=== PATIENT | male | born 1965 | race Caucasian/White ===

== ENCOUNTER 2024-03-01 11:00 | Emergency (ER) | payer SELFPAY ==
[~2024-03-01] VITALS: Ht 180.3 cm; Wt 102.6 kg
[~2024-03-01 11:00] MED LIST: GLU500
[2024-03-01 11:02] VITALS: BP 148/86; PULSE 87; RESP 19; TEMP 97.7; O2SAT 95
[2024-03-01] MEDS: HYDROcodone/APAP 5/325 MG 1 TAB TAB PO ONE ×2 (11:25→12:26)
[2024-03-01] MEDS: LIDOCAINE MPF 1% 10 MG/ML VIAL INJ ONE (12:58)
[2024-03-01] MEDS ORDERED: NAPR-1704 PO (12:58)
[2024-03-01] MEDS ORDERED: ACET-8905 PO (12:58)
[2024-03-01] MEDS ORDERED: CEPH-588 PO (12:58)
[2024-03-01 13:15] VITALS: BP 148/86; PULSE 87; RESP 19; TEMP 97.7; O2SAT 95
== END 2024-03-01 13:15 | disposition home or self-care (01) ==
LOC: MED 11:00
DX: S62.634A Displaced fracture of distal phalanx of right ring finger, initial encounter for closed fracture (principal); E11.9 Type 2 diabetes mellitus without complications; I10 Essential (primary) hypertension; E78.5 Hyperlipidemia, unspecified; Z79.899 Other long term (current) drug therapy; W23.0XXA Caught, crushed, jammed, or pinched between moving objects, initial encounter; Y93.89 Activity, other specified; Y92.89 Other specified places as the place of occurrence of the external cause; Y99.8 Other external cause status
CPT/HCPCS: 29130; 64450; 73130; 90471; 90715; 99284; J2003; 99283